=== PATIENT | female | born 1975 | race Caucasian/White ===

== ENCOUNTER 2017-02-13 14:33 | Outpatient (CLI) | payer OTHER ==
--- NOTE | 2017-02-13 15:31 | RAD ---
CHEST TWO VIEW 02/13/17 HISTORY: Preop. COMPARISON: None. FINDINGS: The lungs are clear. No pneumothorax or effusion. The cardiac silhouette and mediastinal contours are within normal limits. IMPRESSION: No acute intrathoracic abnormality. POS: [facility]
[2017-02-13 15:49] LABS: #Basophils 0.1 thou/uL (0.0-0.2); #Eosinphils 0.2 thou/uL (0.0-0.7); #Lymphocytes 2.3 thou/uL (1.20-3.40); #Monocytes 0.6 thou/uL (0.11-0.59); #Neutrophils 4.8 thou/uL (1.40-6.50); %Basophils 0.7 % (0.0-1.0); %Lymphocytes 28.5 % (21.0-51.0); %Monocytes 7.4 % (0.0-10.0); Hematocrit 39.5 % (36.0-47.0); Mean Platelet Volume 8.6 fL (7.4-10.4); Red Blood Cell (RBC) Count 4.27 mill/uL (4.20-5.40)
[2017-02-13 16:06] LABS: ALT (SGPT) 25 U/L (8-55); AST (SGOT) 18 U/L (5-34); Alkaline Phosphatase 50 U/L (40-150); Anion Gap 12 mmol/L (10-20); BUN (Urea Nitrogen) 18 mg/dL (7.0-18.7); Bilirubin, Direct 0.1 mg/dL (0.1-0.3); Bilirubin, Total 0.3 mg/dL (0.2-1.2); Calc. Creatinine Clearance 0 mL/min (70-130); Calcium 9.6 mg/dL (7.8-10.44); Carbon Dioxide 24 mmol/L (22-29); Chloride 105 mmol/L (98-107); Estimated GFR-MDRD 90; Protein, Total 7.4 g/dL (6.0-8.3)
--- NOTE | 2017-02-16 12:24 | EKG ---
Test Reason : Blood Pressure : / mmHG Vent. Rate : 078 BPM Atrial Rate : 078 BPM P-R Int : 148 ms QRS Dur : 070 ms QT Int : 354 ms P-R-T Axes : 030 028 025 degrees QTc Int : 403 ms Normal sinus rhythm Low voltage QRS Borderline ECG Confirmed by MARTY BRAVO ([id number]) on 02/16/2017 12:24:06 PM Referred By: Confirmed By:MARTY BRAVO
== END 2017-02-13 14:34 | disposition home or self-care (01) ==
LOC: LABBT 14:33
PROVIDERS: ATTEND Surgery
DX: Z01.818 Encounter for other preprocedural examination (principal); E66.01 Morbid (severe) obesity due to excess calories
CPT/HCPCS: 71020; 80053; 80076; 83036; 84703; 85025; 93005; 93010

== ENCOUNTER 2017-02-18 05:59 | Inpatient (IN) | payer OTHER ==
[2017-02-13 14:54] VITALS: BMI 34.4
[2017-02-18] MEDS ORDERED: Midazolam HCl 2 mg/2 ml Vial ONE ×2 (06:22→07:11)
[2017-02-18] MEDS ORDERED: Fentanyl 250 MCG/5 ML VIAL ONE (06:22)
[2017-02-18] MEDS ORDERED: Fentanyl 100 MCG/2 ML VIAL ONE (06:22)
[2017-02-18] MEDS ORDERED: Bupivacaine/Epinephrine 0.25% 30 ML VIAL ONE (06:30)
[2017-02-18] MEDS ORDERED: Heparin 5,000 UNITS/ML VIAL ONE (06:53)
[2017-02-18] MEDS ORDERED: CEFAZOLIN/Water 2 GM/20 ML SYRINGE ONE (06:53)
[2017-02-18] MEDS ORDERED: Morphine Sulfate 2 MG/ML SYRINGE SLOW IVP PRN (07:55)
[2017-02-18] MEDS ORDERED: Zolpidem Tartrate 5 MG TAB PO PRN (07:55)
[2017-02-18] MEDS ORDERED: Fentanyl 5000 MCG/250 ML CADD IVPB PRN (07:55)
[2017-02-18] MEDS ORDERED: HYDROmorphone 2 MG/ML VIAL SLOW IVP PRN (07:55)
[2017-02-18] MEDS ORDERED: diphenhydrAMINE 50 MG/ML VIAL IVP PRN ×2 (07:55→08:40)
[2017-02-18] MEDS ORDERED: diphenhydrAMINE 25 MG CAP PO PRN (07:55)
[2017-02-18] MEDS ORDERED: Meperidine HCl/PF 25 MG/ML VIAL SLOW IVP PRN (07:55)
[2017-02-18] MEDS ORDERED: diphenhydrAMINE 50 MG/ML VIAL IM PRN (07:55)
[2017-02-18] MEDS ORDERED: Ondansetron HCl/PF 4 MG/2 ML Vial IVP PRN ×2 (07:55→08:40)
[2017-02-18] MEDS ORDERED: Promethazine HCl 25 MG/ML VIAL IM PRN ×2 (07:55→08:40)
[2017-02-18] MEDS ORDERED: Naloxone HCl 0.4 mg/ml Vial IV PRN (07:55)
[2017-02-18] MEDS ORDERED: Promethazine HCl 25 MG/ML VIAL SLOW IVP PRN (07:55)
[2017-02-18] MEDS ORDERED: Communication Order-Pharmacy FS SCH (08:00)
[2017-02-18] MEDS ORDERED: Dextrose 50% Abboject 50 ML SYRINGE SLOW IVP PRN (08:40)
[2017-02-18] MEDS ORDERED: Hydrocodone-Acetamin 15 ML UDCUP PO PRN (08:40)
[2017-02-18] MEDS ORDERED: Dextrose 5% in Water 1,000 ML IV PRN (08:40)
[2017-02-18] MEDS ORDERED: hydrALAZINE 20 MG/ML VIAL SLOW IVP PRN (08:40)
[2017-02-18] MEDS: D5 1/2 NS w/20 mEq KCL 1,000 ML IV SCH ×2 (10:32→17:50)
[2017-02-18] MEDS: Pantoprazole 40 MG VIAL IVP SCH (10:32)
--- NOTE | 2017-02-18 10:39 | OP ---
PREOPERATIVE DIAGNOSIS: Morbid obesity. SURGEON: Dell Coppola M.D. PROCEDURE PERFORMED: Laparoscopic sleeve gastrectomy with esophagogastroscopy. INDICATIONS: Patient is a 41-year-old female, morbidly obese, who has attempted multiple weight loss programs without success. FINDINGS: A 38-[place] bougie used. PROCEDURE IN DETAIL: After informed consent was obtained, the patient was taken to the operating armida m and given general endotracheal anesthesia, placed in the supine position. The abdomen was prepped and draped in the usual fashion. Local anesthesia infiltrated subcutaneously and deep and a 12 mm in cision was performed. A 0 degree laparoscopic scope inserted under direct vision. Pneumoperitoneum was then created to a pressure of 15 mmHg. The patient placed in steep reverse Trendelenburg positio n. Lion liver retractor inserted. Left lobe of liver retracted superiorly. Pylorus identified and a 12 mm port placed on the right beneath it, two 12s placed left subcostal. The omentum was bobby en off the greater curvature utilizing the LigaSure. Short gastrics divided with the LigaSure and th e left crura defined with the LigaSure. The 38-[place] bougie inserted directed into the antrum. A l inear 60 mm green load stapler used to divide the antrum to the bougie, gold load along the bougie, a nd a series of blues through the angle of His. Intraoperative endoscopy was performed. The video en doscope inserted under direct vision. The staple line inspected. There was no bleeding. Staple bird e then tested by inflating the new stomach with pressurized air under water. There was no air leak. Stomach decompressed. Scope removed. The remnant stomach removed from the abdomen through the left lateral port site. The fascia closed with 0 Vicryl suture and the GraNee needle. Trocars and retra ctors removed. The skin closed with interrupted 4-0 Rapide. Dermabond applied. Patient tolerated t he procedure well and transferred to recovery in good condition. Sponge and needle count verified co rrect x2.
[2017-02-18] MEDS: Ketorolac Tromethamine 30 MG/ML VIAL IVP SCH ×2 (13:11→17:48)
[2017-02-18] MEDS: CEFAZOLIN/Water 2 GM/20 ML SYRINGE SLOW IVP SCH (14:29)
[2017-02-18] MEDS ORDERED: Ondansetron HCl/PF 4 MG/2 ML Vial ONE (15:42)
[2017-02-18] MEDS ORDERED: PROPOFOL 200 MG/20 ML VIAL ONE (15:42)
[2017-02-18] MEDS ORDERED: Ketorolac Tromethamine 30 MG/ML VIAL ONE (15:42)
[2017-02-18] MEDS ORDERED: ePHEDrine/0.9% NaCl/PF SYRINGE 50 mg/10 ml ONE (15:42)
[2017-02-18] MEDS ORDERED: Dexamethasone 20 MG/5 ML VIAL ONE (15:42)
[2017-02-18] MEDS ORDERED: Glycopyrrolate 0.2 MG/ML 5 ML SYRINGE ONE (15:42)
[2017-02-18] MEDS ORDERED: Lidocaine 1% PF 5 ML VIAL ONE (15:42)
[2017-02-19] MEDS: CEFAZOLIN/Water 2 GM/20 ML SYRINGE SLOW IVP SCH (00:10)
[2017-02-19] MEDS: Ketorolac Tromethamine 30 MG/ML VIAL IVP SCH ×3 (00:10→12:11)
[2017-02-19] MEDS: D5 1/2 NS w/20 mEq KCL 1,000 ML IV SCH (00:50)
[2017-02-19 05:24] LABS: Anion Gap 12 mmol/L (10-20); BUN (Urea Nitrogen) 6 mg/dL (7.0-18.7); Calc. Creatinine Clearance 181 mL/min (70-130); Calcium 8.6 mg/dL (7.8-10.44); Carbon Dioxide 20 mmol/L (22-29); Chloride 109 mmol/L (98-107); Estimated GFR-MDRD Greater than 90; Glucose 109 mg/dL (70-105); Potassium 4.7 mmol/L (3.5-5.1); Sodium 136 mmol/L (136-145)
[2017-02-19 06:31] LABS: Hemoglobin 11.8 g/dL (12.0-16.0); Mean Corpuscular HGB CONC 32.2 g/dL (32.0-36.0); Mean Corpuscular Hemoglobin 30.6 pg (27.0-31.0); Mean Corpuscular Volume 94.9 fl (81.0-99.0); Mean Platelet Volume 9.1 fL (7.4-10.4); Platelet Count 245 thou/uL (130-400); RBC Distribution Width 12.1 % (11.5-14.5); Red Blood Cell (RBC) Count 3.85 mill/uL (4.20-5.40); White Blood Cell (WBC) Count 17.4 thou/uL (4.8-10.8)
[2017-02-19 06:43] LABS: Band 2 % (5-11); Eosinophils 1 % (0-10); Lymphocytes 13 % (21-51); MDiff Complete? YES; Monocytes 6 % (0-10); Neutrophil 78 % (42-75); Nucleated RBC 1 % (0); PLT Morphology Comment Appears Adequate; RBC Morphology Normal
[2017-02-19] MEDS: Pantoprazole 40 MG VIAL IVP SCH (08:23)
[2017-02-19] MEDS ORDERED: Enoxaparin Sodium 40 MG/0.4 ML SYRINGE SC SCH (09:00)
--- NOTE | 2017-02-19 09:17 | RAD ---
LIMITED UPPER WITH 15 ML GASTROGRAFIN: History: Post bariatric surgery (vertical sleeve gastrectomy). FINDINGS: There is prompt passage of contrast from the esophagus into the gastric remnant. No contrast extravas ation is seen. IMPRESSION: Normal exam. POS: [facility]
[2017-02-19 12:36] VITALS: BP 119/79; TEMP 97.8
[2017-02-19] MEDS ORDERED: GASTROGRAFIN 30 ML BOT ONE (16:16)
--- NOTE | 2017-02-19 20:42 | DIS ---
DISCHARGE DIAGNOSIS: Morbid obesity. PROCEDURES DURING ADMISSION: Laparoscopic sleeve gastrectomy, intraoperative esophagogastroscopy, po stoperative Gastrografin swallow. HOSPITAL COURSE: The patient was admitted, taken to the operating room where she underwent sleeve ga strectomy. Postoperatively, she has done well. She is tolerating her liquids well. Her x-ray was f ine. She is discharged home in good condition on hydrocodone and Zofran. She will follow up with me in 2 weeks.
== END 2017-02-19 12:54 | disposition home or self-care (01) | DRG 621 ==
LOC: SDC 05:59 → SJJU 08:40 → EDSTATUS 15:00
PROVIDERS: ADMIT Surgery; ATTEND Surgery
PROC: 0DB64Z3 Excision of Stomach, Percutaneous Endoscopic Approach, Vertical (ICD-10-PCS; principal; 2017-02-18)
PROC: 0DJ08ZZ Inspection of Upper Intestinal Tract, Via Natural or Artificial Opening Endoscopic (ICD-10-PCS; 2017-02-18)
DX: E66.01 Morbid (severe) obesity due to excess calories (principal); G62.9 Polyneuropathy, unspecified; Z68.34 Body mass index [BMI] 34.0-34.9, adult; J45.909 Unspecified asthma, uncomplicated
CPT/HCPCS: 36415; 74241; 80048; 85025; 88307; 88312; 94760; C9113; J0131; J1100; J1644; J1650; J1885; J2001; J2250; J2405; J2704; J3010

== ENCOUNTER 2019-07-19 15:22 | Outpatient (CLI) | payer OTHER ==
--- NOTE | 2019-07-19 16:12 | RAD ---
EXAM: LEFT ANKLE THREE VIEWS: 07/19/19 HISTORY: Left ankle pain. FINDINGS/IMPRESSION: Minimal degenerative and osteoarthrosis changes of the ankle. No fracture or dislocation or other acu te process. POS: RRE
--- NOTE | 2019-07-19 16:19 | RAD ---
EXAM: LEFT FOOT THRE VIEWS: 07/19/19 HISTORY: Left foot pain. FINDINGS/IMPRESSION: Minimal osteoarthrosis and degenerative changes including a calcaneal plantar enthesophyte. No fractu re or dislocation. POS: RRE
== END 2019-07-19 15:23 | disposition home or self-care (01) ==
LOC: BICRAD 15:22
PROVIDERS: ATTEND Podiatrist
DX: M25.572 Pain in left ankle and joints of left foot (principal); M79.672 Pain in left foot; M21.40 Flat foot [pes planus] (acquired), unspecified foot; M19.072 Primary osteoarthritis, left ankle and foot; M77.32 Calcaneal spur, left foot

== ENCOUNTER 2021-09-19 12:50 | Outpatient (CLI) | payer BC | END 2021-09-19 12:51 | disposition home or self-care (01) | LOC: BICMAMMO 12:50 | PROVIDERS: ATTEND Family Medicine | DX: R92.8 Other abnormal and inconclusive findings on diagnostic imaging of breast (principal); N63.23 Unspecified lump in the left breast, lower outer quadrant | CPT/HCPCS: 77066; G0279 ==